=== PATIENT | male | born 1950 | race Asian ===

== ENCOUNTER 2018-12-19 17:19 | Emergency (ER) | payer OTHER ==
[~2018-12-19] VITALS: Ht 172.7 cm; Wt 85.7 kg
[~2018-12-19 17:19] MED LIST: AMLODIPINE BESYLATE PO; ASCO500T18 PO; BISAC-EVAC10 MG RE; CARV12.5 PO; CETIRIZINE10 MG PO; DIVA250T PO; DIVALPROEX250 MG PO; DIVALPROEX500 MG PO; DONEPEZIL HYDRO10 MG PO; EQ ASPIRIN LOW81 MG PO; ESCI10TA PO; FINA5TAB2 PO; FLEET ENEMA RE; FURO20TA67 PO; LEVE500T5 PO; MAGNSUS68 PO; MEMA5TAB PO; MULTTAB52 PO; PANTOPRAZOLE 40MG TA PO; REMERON SOLTAB30 MG PO; SEROQUEL100 MG PO; SEROQUEL50 MG PO; SIMV20TA2 PO; TAMSULOSIN0.4 MG PO; TRAZODONE HYDRO50 MG PO; TYLENOL325 MG PO; ZESTRIL40 MG PO; ZINC220C4 PO
[2018-12-19 18:45] LABS: PLATELET COUNT 128 K/uL (142-355)
[2018-12-19 18:54] LABS: POTASSIUM 4.6 mmol/L (3.6-5.2)
[2018-12-19 19:21] VITALS: BP 137/81; TEMP 98
[2018-12-20] MEDS ORDERED: CYCL10TA35 PO ×2 (04:20→04:31)
[2018-12-20] MEDS ORDERED: SEROQUEL100 MG PO (04:28)
[2018-12-20] MEDS ORDERED: REMERON30 MG PO (04:34)
[2018-12-20] MEDS ORDERED: MEMANTINE HCL10 MG PO (04:44)
[2018-12-20] MEDS ORDERED: CETIRIZINE10 MG PO (04:48)
== END 2018-12-19 19:21 | disposition other institution (70) ==
LOC: ED 17:19
PROVIDERS: Family Medicine
DX: F20.89 Other schizophrenia (principal); F03.91 Unspecified dementia, unspecified severity, with behavioral disturbance; Z04.6 Encounter for general psychiatric examination, requested by authority
CPT/HCPCS: 80053; 80307; 81000; 85027; 93005; 99285